=== PATIENT | male | born 1975 | race Caucasian/White ===

== ENCOUNTER 2017-03-13 16:12 | Emergency (ER) | payer OTHER ==
[2017-03-13] MEDS ORDERED: Lidocaine 4% Cream 5 GM TUBE w/ Tegaderm ONE (20:33)
[2017-03-13] MEDS ORDERED: Adacel (T-DAP) 0.5 ML VIAL ONE ×2 (20:33→21:06)
[2017-03-13] MEDS ORDERED: Acetaminophen 500 MG TAB ONE (21:14)
--- NOTE | 2017-03-13 23:14 | CT ---
EXAM: NONCONTRAST HEAD CT HISTORY: Head injury and scalp laceration, after fall. COMPARISON: None. TECHNIQUE: Noncontrast head CT is performed from skull base to skull vertex. FINDINGS: No parenchymal hemorrhage. No extraaxial hematoma. No midline shift. Basilar cisterns are patent. Brain volume is age-appropriate. Cortical coon-white matter differentiation is preserved. Ventricles and sulci are patent and symmetric. Adequate aeration of the sinuses and mastoid air cells. Calvarium is intact. Small laceration of the posterior left scalp, occipito-parietal location. Minimal induration of the adjacent scalp. Calvarium is unremarkable. IMPRESSION: Posterior left scalp post-traumatic changes. POS: [facility]
== END 2017-03-13 21:28 | disposition home or self-care (01) ==
LOC: ERS 16:12
DX: S06.9X9A Unspecified intracranial injury with loss of consciousness of unspecified duration, initial encounter (principal); S01.01XA Laceration without foreign body of scalp, initial encounter; W01.198A Fall on same level from slipping, tripping and stumbling with subsequent striking against other object, initial encounter
CPT/HCPCS: 12002; 70450; 90471; 90715